=== PATIENT | male | born 1980 | race Caucasian/White ===

== ENCOUNTER 2018-12-29 01:24 | Emergency (ER) | payer SELFPAY ==
[2018-12-29 01:24] VITALS: BMI 27.1
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
[2018-12-29 06:12] VITALS: RESP 20
[2018-12-29 06:15] VITALS: BP 124/82; PULSE 90; TEMP 98.4
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
[2018-12-30 02:49] VITALS: O2SAT 98
== END 2018-12-29 06:12 | disposition short-term general hospital (02) ==
LOC: C.ER 01:24
DX: S01.01XA Laceration without foreign body of scalp, initial encounter (principal); S05.12XA Contusion of eyeball and orbital tissues, left eye, initial encounter; Y04.0XXA Assault by unarmed brawl or fight, initial encounter